=== PATIENT | female | born 1975 | race Caucasian/White ===

== ENCOUNTER → 2021-09-14 03:58 | Outpatient (CLI) | payer OTHER, SELFPAY ==
[2021-09-14 16:42] LABS: Influenza A QL RT-PCR Negative (Negative); Influenza B QL RT-PCR Negative (Negative); SARS-CoV-2 RNA PCR Negative
== END ==
PROVIDERS: PCP Family Medicine; Visit Provider Physician Assistant
DX: R68.89 Other general symptoms and signs (principal); Z20.822 Contact with and (suspected) exposure to COVID-19
CPT/HCPCS: 87502; C9803; U0003; U0005

== ENCOUNTER → 2021-09-19 11:08 | Outpatient (CLI) | payer OTHER, SELFPAY ==
--- NOTE | ~2021-09-19 | US_ITS ---
EXAMINATION: US abdomen limited EXAM DATE: 09/19/2021 11:29 INDICATION: R10.11 - Right upper quadrant pain. TECHNIQUE: Multiple grayscale and Doppler images of the abdomen right upper quadrant were obtained (b y a technologist who performed the scan) and subsequently reviewed. Comparison is made to prior exami nation from 02/15/2019. FINDINGS: The pancreatic head and body are normal in appearance. The pancreatic tail is not visualized. The l iver has normal echogenicity and contour. There are no focal liver lesions identified. There is no evidence of intrahepatic biliary duct dilation. Portal venous flow was seen in the hepatopedal, nor mal direction and has normal Doppler waveform. No right-sided hydronephrosis. Common bile duct measures 4 mm, which is normal. The gallbladder wall is normal in thickness, with ex pected amount of distention. No sonographic evidence of pericholecystic fluid. There is no cholelit hiases. Technologist performing exam reports patient did not demonstrate sonographic Forde's sign. Please note that this sign is less reliable in patients who have received pain medication. IMPRESSION: Unremarkable right upper quadrant sonogram. Reviewed, dictated and finalized at location A. [employer]
== END ==
PROVIDERS: PCP Family Medicine; Visit Provider Physician Assistant
DX: R10.11 Right upper quadrant pain (principal)
CPT/HCPCS: 76705

== ENCOUNTER → 2021-11-24 08:45 | Outpatient (CLI) | payer OTHER, SELFPAY ==
--- NOTE | ~2021-11-24 | MM_ITS ---
EXAMINATION: MM screening seven BI w kiet HISTORY: Screening TECHNIQUE: Craniocaudal and mediolateral oblique 3-D tomosynthesis images were obtained and synthetic 2-D images were generated. CAD analysis was submitted and interpreted. COMPARISON: No prior mammogram is available for comparison at this institution. BREAST PARENCHYMAL COMPOSITION: The breasts are heterogeneously dense, which may obscure small masses . FINDINGS: There are bilateral asymmetries including the upper outer quadrant of the right breast and the medial aspect of the right breast on CC view as well as the subareolar location of the left breas t. There are no suspicious calcifications. IMPRESSION: 1. Bilateral breast asymmetries. 2. Additional mammographic views and possible breast ultrasound are recommended. BI-RADS Category 0: Incomplete: Needs additional imaging evaluation. Reviewed, dictated and finalized at location A. IMPRESSION: 1. Bilateral breast asymmetries. 2. Additional mammographic views and possible breast ultrasound are recommended . BI-RADS Category 0: Incomplete: Needs additional imaging evaluation.
== END ==
PROVIDERS: PCP Family Medicine; Visit Provider Nurse Practitioner Obstetrics & Gynecology
DX: Z12.31 Encounter for screening mammogram for malignant neoplasm of breast (principal); R92.8 Other abnormal and inconclusive findings on diagnostic imaging of breast
CPT/HCPCS: 77063; 77067

== ENCOUNTER 2022-02-14 09:31 | Outpatient (CLI) | payer OTHER, SELFPAY ==
--- NOTE | ~2022-02-14 | XR_ITS ---
EXAMINATION: XR hip RT 2V w AP pelvis DATE: 02/14/2022 10:02 INDICATION: Low back pain. TECHNIQUE: An anteroposterior view of the pelvis and 2 views of right hip were obtained. COMPARISON: None. FINDINGS: Bone alignment is normal. No fracture. There is mild osteoarthrosis of the hips characteriz ed by tiny osteophytes. No joint space narrowing. IMPRESSION: 1. Mild osteoarthritis of the hips. Reviewed, dictated and finalized at location A.
--- NOTE | ~2022-02-14 | XR_ITS ---
EXAMINATION: XR lumbar spine min 4V DATE: 02/14/2022 10:01 INDICATION: Low back pain. TECHNIQUE: 5 views of lumbar spine were obtained. COMPARISON: CT abdomen and pelvis 02/15/2019 FINDINGS: Bone alignment is normal. Vertebral body heights and intervertebral disc heights are normal . There are endplate osteophytes at multiple levels. There is multilevel mild facet joint osteoarthri tis. At L5-S1, there is severe bilateral facet joint osteoarthritis. IMPRESSION: 1. Mild lumbar spondylosis. Reviewed, dictated and finalized at location A. IMPRESSION: 1. Mild lumbar spondylosis.
== END 2022-02-14 09:32 | disposition home or self-care (01) ==
PROVIDERS: PCP Family Medicine; Visit Provider Physician Assistant
DX: M16.0 Bilateral primary osteoarthritis of hip (principal); M47.896 Other spondylosis, lumbar region
CPT/HCPCS: 72110; 73502

== ENCOUNTER 2022-02-21 11:26 | Outpatient (CLI) | payer OTHER, SELFPAY ==
--- NOTE | ~2022-02-21 | MMUS_ITS ---
EXAMINATION: MM diagnostic seven BI w kiet, US breast BI complete HISTORY: Follow-up bilateral breast asymmetries. TECHNIQUE: Additional 3-D tomosynthesis images of the breasts were performed and synthetic 2-D images were generated. CAD analysis was submitted and interpreted. High resolution bilateral complete breas t ultrasound was performed. COMPARISON: 11/24/2021 BREAST PARENCHYMAL COMPOSITION: The breasts are heterogenously dense, which may obscure small masses FINDINGS: MAMMOGRAPHIC FINDINGS: There are persistent bilateral breast asymmetries, although no discrete mass, focal architectural dis tortion or suspicious cluster of calcifications are identified. There are prominent subareolar ducts of the left breast. ULTRASOUND: Complete bilateral US of all 4 quadrants of the breasts and retroareolar region was reviewed. Right breast ultrasound: There are prominent ducts at the 8:00 position of the right breast. At 10:00 , 4 cm from the nipple there is a 8 mm cyst. No suspicious masses in the right breast to suggest marjan gnancy. Left breast ultrasound: There are normal-appearing lymph nodes in the left axilla with residual fatty hilum measuring up to 1 cm greatest dimension. At 3:00, 8 cm from the nipple, there is an irregular shaped hypoechoic 1.1 cm mass with some angular margins, no significant posterior features or interna l vascularity. There are prominent subareolar ducts of the 8:00 position of the left breast. IMPRESSION: 1. Irregular shaped hypoechoic left breast mass at 3:00, 8 cm from the nipple measuring up to 11 mm. 2. Ultrasound-guided left breast biopsy recommended. BI-RADS category 4, suspicious findings. Reviewed, dictated and finalized at location A. IMPRESSION: 1. Irregular shaped hypoechoic left breast mass at 3:00, 8 cm from the nipple m easuring up to 11 mm. 2. Ultrasound-guided left breast biopsy recommended. BI-RADS category 4, suspicious findings.
== END 2022-02-21 11:27 | disposition home or self-care (01) ==
PROVIDERS: PCP Family Medicine; Visit Provider Nurse Practitioner Obstetrics & Gynecology
DX: R92.8 Other abnormal and inconclusive findings on diagnostic imaging of breast (principal)
CPT/HCPCS: 76641; 77062; 77066; G0279

== ENCOUNTER 2023-08-26 11:25 | Emergency (ER) | payer OTHER, SELFPAY ==
[2023-08-26 11:27] VITALS: BP 162/95; PULSE 75; RESP 16; TEMP 36.2; O2SAT 100
--- NOTE | 2023-08-26 13:03 | PC.NURSE ---
patient left from waiting room without being seen
== END 2023-08-26 13:08 | disposition left against medical advice (07) ==
LOC: ANHED 13:06
PROVIDERS: PCP Family Medicine
DX: M54.50 Low back pain, unspecified (principal)
CPT/HCPCS: 99199